=== PATIENT | female | born 1955 | race Caucasian/White ===

== ENCOUNTER → 2017-10-13 | Outpatient (CLI) | payer OTHER ==
[~2017-10-13] MED LIST: ALBU90OI61 INH; ALBUTEROL MDI; CHOL10002 PO; LEVSOD100 PO; LOSHYD PO; SERT100 PO; Zithromax250 MG PO
[2017-10-13 09:44] LABS: Test Name URICLC
[2017-10-13 09:50] LABS: Automated BF RBC Count 0.009 M/mm3 (0-0); Body Fluid WBC Count 22361 /mm3 (0-999); RBC Count, Body Fluid 9000 /mm3 (0-0)
[2017-10-13 10:08] LABS: Automated BF WBC Count 22.361 K/mm3 (0-999)
[2017-10-13 11:18] LABS: Appearance, Body Fluid Cloudy (Clear); Color, Body Fluid Yellow (None-Yellow)
[2017-10-13 11:19] LABS: Total Cell Count, Body Fluid 100
[2017-10-13 12:06] LABS: Body Fluid Crystals NEG (NEGATIVE)
[2017-10-18 12:48] LABS: Performing Lab LABCORP
== END | disposition home or self-care (01) ==
LOC: LAB 08:35
PROVIDERS: Nurse Practitioner Family
DX: M25.461 Effusion, right knee (principal)
CPT/HCPCS: 84560; 87070; 87075; 87205; 89051; 89060

== ENCOUNTER 2018-01-12 08:26 | Emergency (ER) | payer OTHER ==
[~2018-01-12] VITALS: Ht 172.7 cm; Wt 86.2 kg
[~2018-01-12 08:26] MED LIST changes: -ALBU90OI61 INH; -Zithromax250 MG PO
[2018-01-12] MEDS ORDERED: ALBU90OI61 INH (09:18)
[2018-01-12] MEDS ORDERED: Zithromax250 MG PO (10:34)
== END 2018-01-12 10:45 | disposition home or self-care (01) ==
LOC: ER 08:26
DX: J32.9 Chronic sinusitis, unspecified (principal); F17.200 Nicotine dependence, unspecified, uncomplicated; Z88.8 Allergy status to other drugs, medicaments and biological substances; Z79.899 Other long term (current) drug therapy
CPT/HCPCS: 71046; 99283